=== PATIENT | male | born 1935 | race Caucasian/White ===

== ENCOUNTER 2020-09-15 17:27 | Inpatient (IN) | payer MEDICARE, BC, SELFPAY ==
[2020-09-15 17:33] VITALS: BP 139/59; PULSE 52; RESP 16; TEMP 36.7; O2SAT 95; BMI 20.9
--- NOTE | 2020-09-15 17:44 | ED.GENADULT ---
HPI - General Adult General Chief complaint: General Medical Stated complaint: general malaise Time Seen by Provider: 09/15/20 17:44 Source: family (Daughter/healthcare proxy at bedside) and EMS Mode of arrival: EMS Limitations: altered mental status (Advanced dementia/Alzheimer's) History of Present Illness HPI narrative: 85-year-old male with a past medical history of advanced dementia/Alzheimer's who was recently on hospice until his daughter's/healthcare proxy revoked it today due to patient became very sedated after he was given his 1st dose of 25 mg of Seroquel and they did not feel comfortable him at home this sedated and they were concerned that he was possibly having a stroke therefore they sent him here for further evaluation and treatment. Although on arrival daughter at bedside reports that she would rather make him comfort measures only because she would not want him to go through surgery or any other invasive intervention. She reports he is DNR. They are interested in the patient going to a long-term facility for comfort measures. Related Data Home Medications Medication Instructions Recorded Confirmed clopidogrel 75 mg tablet 75 mg PO DAILY 03/02/20 03/02/20 melatonin 10 mg tablet 10 mg PO BEDTIME PRN 03/02/20 03/02/20 metformin 500 mg tablet 500 mg PO BID 03/02/20 03/02/20 nitroglycerin 0.3 mg sublingual mg SUBLINGUAL 03/02/20 03/02/20 tablet Previous Rx's Medication Instructions Recorded acetaminophen 500 mg capsule 500 mg PO BID PRN 30 Days #60 cap 01/24/20 clonazepam 0.5 mg tablet 0.5 mg PO DAILY 30 Days #30 tab 01/24/20 metoprolol succinate 100 mg 100 mg PO DAILY #90 tab 03/13/20 tablet,extended release 24 hr aspirin 81 mg tablet,delayed 81 mg PO DAILY 30 Days #30 tab 03/29/20 release dexamethasone 2 mg tablet 2 mg PO DAILY 30 Days #30 tab 03/29/20 naproxen 500 mg tablet 500 mg PO BID PRN 30 Days #60 tab 03/29/20 rosuvastatin 20 mg tablet 20 mg PO DAILY #90 tab 04/24/20 amlodipine 10 mg tablet 10 mg PO DAILY #90 tab 07/07/20 isosorbide mononitrate 30 mg 30 mg PO DAILY #90 tab 07/24/20 tablet,extended release 24 hr losartan 25 mg tablet 25 mg PO DAILY #90 tab 08/14/20 donepezil 5 mg tablet 5 mg PO BEDTIME #90 tab 08/21/20 trazodone 50 mg tablet 50 mg PO BEDTIME 90 Days #90 tab 09/05/20 Allergies Allergy/AdvReac Type Severity Reaction Status Date / Time No Known Allergies Allergy Mild NONE Verified 03/02/20 11:55 Review of Systems Review of Systems: Yes Unobtainable due to mental status [facility] Past Medical History Medical History Ischemic cardiomyopathy Social History Social History Advance Directives: No Physical Exam Vital Signs: Vital Signs: Last Vital Signs Temp 98.1 F 09/15/20 17:33 Pulse 56 09/15/20 19:51 Resp 17 09/15/20 19:51 BP 139/59 L 09/15/20 17:33 Pulse Ox 95 09/15/20 17:33 Body Mass Index 20.9 vital signs have been reviewed as normal and appeared to be correct. Blood pressure hypotensive 139/59. Heart rate normal. Respiration rate normal. Temperature normal. Oxygen saturation normal. Appearance: Alert. Pleasantly confused. No acute distress. Head: Normal external exam. Normocephalic. Atraumatic. Eyes: PERRLA. EOMI. Conjunctiva and sclera normal. Eyelids normal. ENT: Pharynx normal. Uvula midline. Moist mucous membranes. No trismus noted. No drooling noted. No muffled voice noted. Neck: Normal inspection. Neck supple. FROM. No adenopathy. Thyroid Normal. No meningeal signs. No neck mass noted. CVS: Normal heart rate and rhythm. Heart sound normal. Pulses normal throughout. No murmurs/rales/gallops. Respiratory: No respiratory distress. Painless inspiration. Breath sounds normal. No wheezes/rales/rhonchi noted. Chest nontender. No accessory muscle usage noted or decreased air movement noted. Abdomen: Soft and nontender. Bowel sounds normal in all 4 quadrants. No distention noted. No organomegaly noted. No visible injury noted. Back: Full range of motion noted. No rashes/lesion/induration/fluctuance or signs of infection noted. Skin: Skin warm and dry. Normal skin color. Normal skin turgor. No rashes/lesions/lacerations noted. Extremities: No lower extremity edema. Extremities exhibit normal range of motion. Extremities nontender. Neuro: Alert pleasantly confused. No motor deficit. No sensory deficit. Reflexes normal. No focal neuro deficits noted. Vascular: + radial pulses/+ 2 distal pedal pulses/+2 dorsalis pedis b/l. Normal cap refill. No cyanosis noted to upper extremity nails and lower extremity toes nails. Course Course Course Narrative: 85-year-old male with a past medical history of advanced dementia/Alzheimer's who was recently on hospice until his daughter's/healthcare proxy revoked it today due to patient became very sedated after he was given his 1st dose of 25 mg of Seroquel and they did not feel comfortable him at home this sedated and they were concerned that he was possibly having a stroke therefore they sent him here for further evaluation and treatment. Although on arrival daughter at bedside reports that she would rather make him comfort measures only because she would not want him to go through surgery or any other invasive intervention. She reports he is DNR. They are interested in the patient going to a long-term facility for comfort measures. Therefore I consulted with case management and case management reported that the patient had his hospice revolve therefore he would have to wait 48 hours to be re-evaluated by hospice therefore patient will be admitted with comfort measures and IV will be placed and 1 mg of morphine and 0.5 mg of Ativan every 6 hours p.r.n. will be administered if indicated for comfort measures. Daughter at bedside understand and agree with this plan. I spoke to and she will be admitting the patient at this time. Medical Decision Making Medical Records Medical records reviewed: Yes I reviewed the patient's medical records. Discharge Plan Discharge Clinical Impression: Dementia, Comfort measures only status Patient Disposition: Admitted As Inpatient
--- NOTE | 2020-09-15 17:55 | PC.NURSE ---
pt took seroquel for the first time today at 12 noon. per juanita at [facility]- family called [facility] at 1430 d/t pt being lethargic and drooling- family did not want any measures taken at that time. pt now presents to ed d/t family revoking hospice for a medical eval to figure out what is going on. per [facility] daughter will not want to take him back home. juanita to fax over dni/dnr molst form and hcp jesse guevara cm aware of pt
[2020-09-15 19:51] VITALS: PULSE 56; RESP 17
--- NOTE | 2020-09-15 20:55 | PHA.MEDREC ---
Pharmacy Consult ? Medication Reconciliation Pharmacy has completed the medication reconciliation.
[2020-09-15 21:09] LABS: COVID-19 Test Negative (Negative)
--- NOTE | 2020-09-15 22:36 | MHC.CM.PN ---
Addendum entered by Josee Tapia 09/15/20 23:18: Purnima Sherman, HCP/daughter karri with room assignment. IMM reviewed and signed per protocol Addendum entered by Josee Tapia 09/15/20 23:07: HCP, MOLST, INVOKED HCP, and Medication list uploaded into [employer]. HCP, invoked HCP and Molst uploaded into [facility]. Original Note: CM received consult from Yana Hearn and Jessica HUDSON. Pt was being cared for by daughter with hospice ([facility]) at home. Pt given seraquel today and became very lethargic. Family got scared and wanted to bring pt to ED for evaluation. Family called hospice. Family then revoked hospice as of today and had pt transported to ED. 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 Pt arousable. Daughters would like to re-instate hospice, but do not feel they can take pt home at this time. CM spoke with automation qtp tester RN Lillian at [facility] hospice. She verified that there is a 48 hour waiting period before hospice can be re-instated. Lillian states she will check with her director- [facility] can see pt and family on Friday. Per Lillian, [facility] hospice is not an option if pt comfortable and not needing pain management for severe distress. Lillian tells CM that pt can have hospice in a facility. Pt remains a DNR/DNI. Spoke with family about conversation with Lillian from hospice. They understand and are in agreement for pt to be admitted for MANAGER TECHNICAL SERVICES and for hospice to re-evaluate pt on Friday. Daughters state that their father is a and in the past has [facility] and [facility]. Has not had care at [facility] for many years. Shaye Hang has been working with family regarding VA benefits . She is automation qtp tester tomorrow and available by cell at [phone], for any questions. HCP, MOLST, and invoked HCP by Sinan Cortes on chart. Medication list on chart. CM will need to call VA to see if he is vet connected and what services he is entitled to. Family states pt is vet connected and they believe his choice for SNF are [facility] or [facility]. Family would like [facility]. No referrals placed, pending verification of benefits with VA. Pt was able to share his social security number with CM SS# [id number]. IMM not completed. CM to follow fo d/c needs
[2020-09-16] VITALS (8 sets, daily range): BP systolic 121–177; BP diastolic 62–77; PULSE 50–64; RESP 18–20; TEMP 36.2–37.2; O2SAT 93–97; BMI 20.9
[2020-09-16 04:59] LABS: MANUAL DIFF FLAG NO
[2020-09-16 05:07] LABS: Basophils Absolute Auto 0.1 X10*3/uL (0.0-0.2); Basophils Percent Auto 0.6 % (0-2); Eosinophils Absolute Auto 0.2 X10*3/uL (0.0-0.4); Eosinophils Percent Auto 2.2 % (0-4); Hematocrit 34.8 % (42-52); Hemoglobin 11.6 g/dl (14.0-18.0); Imm Gran Abs Auto 0.02 X10*3/uL (0.00-0.03); Imm Gran Pct Auto 0.2 % (0.0-0.4); Lymphocytes Absolute Auto 1.6 X10*3/uL (1.2-4.9); Lymphocytes Percent Auto 19.5 % (20-40); Mean Corpuscular HGB Conc 33.3 g/dl (31.0-36.0); Mean Corpuscular Hemoglobin 30.1 pg (27.0-33.0); Mean Corpuscular Volume 90.4 fL (80-98); Mean Platelet Volume 11.1 fL (9.4-12.4); Monocytes Absolute Auto 0.6 X10*3/uL (0.1-1.2); Monocytes Percent Auto 6.9 % (2-11); Neutrophils Absolute Auto 5.9 X10*3/uL (2.0-8.3); Neutrophils Percent Auto 70.6 % (45-73); Platelet Count 183 X10*3/uL (160-400); Red Blood Count 3.85 X10*6/uL (4.60-5.80); Red Cell Distribution Width 12.5 % (11.0-16.0); White Blood Count 8.3 X10*3/uL (4.8-10.8)
[2020-09-16 05:32] LABS: Anion Gap 13 (12-20); Blood Urea Nitrogen 41 mg/dL (9-16); Calcium 8.6 mg/dL (8.4-10.2); Carbon Dioxide 27 mmol/L (22-29); Chloride 103 mmol/L (96-108); Creatinine Clr Calc Pharmacy 26.7; Estimated Glomerular Filt Rate 33; Glucose Random 149 mg/dL (60-115); Sodium 139 mmol/L (135-145)
--- NOTE | 2020-09-16 07:29 | PM.IMHP ---
History of Present Illness Date of Service: 09/15/20 Chief Complaint: Encephalopathy This is an 85-year-old male with past medical history of severe dementia currently on hospice who is brought in by his daughters due to worsening mental status. Patient was recently started on Seroquel, took his 1st dose today and became completely lethargic according to the daughters and started drooling and not responding. Hospice was contacted, given the daughter's concerns and the need to bring him to the hospital, hospice was revoked. The daughters who were his healthcare proxy would like patient to be comfort measures only. Unable to review any systems as patient is obtunded. On arrival to the ED patient hemodynamically stable with no significant abnormal vitals Family was concerned about a stroke but they do not want any further medical intervention and would like to take patient home on hospice again but because patient's hospice was revoked he will need to stay in the hospital and be re-evaluated for hospice Review of Systems Review of Systems: Yes Unobtainable due to mental condition and Unobtainable due to mental status [facility] Medical History (Updated 09/16/20 @ 07:31 by Elvira Kenyon MD) Dementia Ischemic cardiomyopathy Social History Household Members: Spouse and Children Housing: Apartment Do you presently have visiting nurse or other home services: No Unable to assess alcohol history related to: Unknown Patient Tobacco Use Status: Tobacco use Unknown Use of substances other than those prescribed or required for medical reasons: Unknown Have you been hit, kicked, punched, or otherwise hurt by someone within the past year? If so, by whom?: No Do you feel safe in your current relationship?: Yes Is there a partner from a previous relationship who is making you feel unsafe now?: No Are you made to feel afraid or neglected: No Advance Directives: No Advance Directives Information Provided: Yes (yy) Do you have thoughts of harming others: None Do you have a plan to hurt others: No Plan Recently lost weight without trying: Unsure Nutrition Risks: No Nutritional Risk Poor oral hygiene: No service: Yes Current occupational status: retired Meds Allergies Allergy/AdvReac Type Severity Reaction Status Date / Time No Known Allergies Allergy Mild NONE Verified 03/02/20 11:55 Active Medications: Current Medications Generic Name Dose Route Start Last Admin Trade Name Jorgeq PRN Reason Stop Dose Admin Acetaminophen 650 mg 09/16/20 00:23 Acetaminophen 325 Mg Tablet PO Q6H PRN Pain, Mild (Pain Scale 1-3) Acetaminophen 650 mg 09/16/20 00:23 Acetaminophen Supp 650 Mg Supp.Rect [place] Q6H PRN Pain, Mild (Pain Scale 1-3) Docusate Sodium 100 mg 09/16/20 00:23 Docusate Sodium 100 Mg Capsule PO DAILY PRN Constipation Lorazepam 0.5 mg 09/15/20 19:54 Lorazepam 2 Mg/Ml Vial IVPUSH Q6H PRN anxiety/agitation Metoprolol Succinate 100 mg 09/16/20 09:00 Metoprolol Succinate Er 100 Mg Tab.Er.24h PO DAILY [facility] Protocol Morphine Sulfate 1 mg 09/15/20 19:34 Morphine Sulfate 2 Mg/Ml Cartridge IVPUSH Q6H PRN pain to maker comfortable Ondansetron HCl 4 mg 09/16/20 00:23 Ondansetron Hcl 4 Mg/2 Ml Vial IVPUSH Q8H PRN Nausea and Vomiting Pharmacy Consult 1 each 09/15/20 20:15 Consult Rx Perform Med Rec MISCELLANE ONCE PRN Consult order Sodium Chloride 3 ml 09/16/20 00:23 09/16/20 00:39 0.9 % Sodium Chloride Flush 3 Ml Syringe IVFLUSH Not Given QSHIFT [facility] Home Medications Medication Instructions Recorded Confirmed Last Taken Type metformin 500 mg tablet 500 mg PO BID 03/02/20 09/15/20 Unknown History acetaminophen 1 tab PO BID PRN 09/15/20 09/15/20 Unknown History amlodipine 1 tab PO DAILY 09/15/20 09/15/20 Unknown History clonazepam 0.25 mg PO DAILY 09/15/20 09/15/20 Unknown History potassium chloride 1 tab PO DAILY 09/15/20 09/15/20 Unknown History Physical Exam Vital Signs and Narrative: Vital Signs: Last Vital Signs Temp 97.2 F 09/16/20 03:52 Pulse 58 09/16/20 03:52 Resp 09/16/20 03:52 BP 125/62 09/16/20 03:52 Pulse Ox 95 09/16/20 03:52 Body Mass Index 20.9 Const: Other: Obtunded Eyes: General: appearance normal, both eyes and all related structures Resp: Effort & Inspection: normal respiratory effort Cardio: Rate: regular rate Rhythm: regular rhythm GI: Palpation (GI): Soft to palpation Auscultation: normal bowel sounds Skin: General skin exam: no rashes or lesions noted Neuro: Cognition (Neuro): normal cognition Extrem: General: Yes normal to inspection and Yes no pedal edema Results Labs CBC and Chem 7: 09/16/20 04:31 09/16/20 04:31 Labs: Laboratory Results - last 24 hr 09/15/20 09/16/20 09/16/20 20:47 04:31 04:31 MCV 90.4 MCH 30.1 MCHC 33.3 RDW 12.5 Plt Count 183 MPV 11.1 Immature Gran % (Auto) 0.2 Neut % (Auto) 70.6 Lymph % (Auto) 19.5 L [place] % (Auto) 6.9 Eos % (Auto) 2.2 Baso % (Auto) 0.6 Lymph # (Auto) 1.6 [place] # (Auto) 0.6 Eos # (Auto) 0.2 Baso # (Auto) 0.1 Abs Immat Gran (auto) 0.02 Absolute Neuts (auto) 5.9 Absolute Nucleated RBC 0.000 Nucleated RBC % (auto) 0.0 Anion Gap 13 Estim Creat Clear Calc 26.7 Estimated GFR 33 Random Glucose 149 H Calcium 8.6 COVID-19 ([facility]) Negative COVID-19 Clin Com See Note Assessment and Plan (1) Comfort measures only status: Status: Acute 85-year-old male with past medical history of severe dementia who was on hospice brought in due to encephalopathy, patient's family would like him to be comfort measures only # encephalopathy - most likely as a result of Seroquel - patient's family do not want him to undergo head CT and 1 him to be comfort measures only At this time will consult case management as patient will need replacement hospice. Quality Stroke Does the patient have a stroke diagnosis?: No VTE Prior VTE?: No VTE Risk Level:: Medical - moderate - high VTE Device Contraindication: Treatment Not Indicated VTE Drug Contraindication: Treatment Not Indicated
[2020-09-16] MEDS: Metoprolol Succinate ER 100 MG TAB.ER.24H PO (10:26)
--- NOTE | 2020-09-16 13:17 | PM.EVENT ---
Documented by User: JC Boggs 09/16/20 13:20 Event Note Date of Service: 09/16/20 Event Note: 85-year-old male with past medical history of ischemic cardiomyopathy, ICD placement, hypertension, sleeping issues, impaired glucose metabolism, hyperlipidemia, advanced dementia who was on hospice brought in due to encephalopathy, patient's family would like him to be comfort measures only encephalopathy poa. resolve. pt awake and alert this morning - most likely as a result of Seroquel - patient's family do not want him to undergo head CT and 1 him to be comfort measures only CM to discuss plan to return to hospice. Code status: EQUIPMENT SERVICE ASSOCIATE Attending: Dr. Doe Documented by User: Tanner Doe MD 09/19/20 12:18 Event Note Date of Service: 09/19/20
--- NOTE | 2020-09-16 16:20 | MHC.CM.PN ---
CM CONTACTED PTS DAUGHTER, BERTRAND RAHMAN ([phone]) WHO REPORTS THEY HAD HAD THE PT AT HOME WITH HOSPICE HOWEVER IT WAS GETTING MORE DIFFICULT TO CARE FOR HIM AND THEY HAD TO BRING HIM IN FOR PLACEMENT. SHE REPORTS THE PT IS A HOWEVER HE HAS NO USED [facility] SERVICES FOR APPROX 10 YEARS. SHE IS INTERESTED IN THE PT GOING TO A VA FACILITY IF HE HAS THE BENEFITS. PTS BENEFITS CANNOT BE RUN BEFORE FRIDAY. DCP IS TBD PENDING VERIFICATION OF PTS VA BENEFITS. IF PT HAS NECESSARY BENEFITS, HE WILL GO TO A [facility] CONTRACTED SNF WITH [facility]
[2020-09-17 11:18] VITALS: BP 170/72; PULSE 57
[2020-09-17] MEDS: Metoprolol Succinate ER 100 MG TAB.ER.24H PO (11:18)
--- NOTE | 2020-09-17 11:34 | P.PNIM_ITS ---
Subjective Subjective Date of Service: 09/17/20 <JC Boggs - Last Filed: 09/17/20 11:59> 09/17/20 <Kike Love MD - Last Filed: 09/17/20 12:39> Interval History: seen and examined this morning says he had a peaceful night no complaints this morning <JC Boggs - Last Filed: 09/17/20 11:59> Review of Systems Review of Systems: Yes all other systems are reviewed and are negative <JC Boggs - Last Filed: 09/17/20 11:59> Constitutional Constitutional: Denies chills and Denies fever(s) <JC Boggs - Last Filed: 09/17/20 11:59> Cardiovascular Cardiovascular: Denies chest pain <JC Boggs - Last Filed: 09/17/20 11:59> Respiratory Respiratory: Denies cough <JC Boggs - Last Filed: 09/17/20 11:59> Gastrointestinal Gastrointestinal: Denies abdominal pain <JC Boggs - Last Filed: 09/17/20 11:59> Physical Exam Vital Signs: Vital Signs: Last Vital Signs Temp 98.7 F 09/16/20 23:40 Pulse 57 09/17/20 11:18 Resp 18 09/16/20 23:40 BP 170/72 H 09/17/20 11:18 Pulse Ox 93 09/16/20 23:40 Body Mass Index 20.9 <JC Boggs - Last Filed: 09/17/20 11:59> Const: General: comfortable, no acute distress, alert and awake <JC Boggs - Last Filed: 09/17/20 11:59> Nutritional Appearance: well nourished <JC Boggs - Last Filed: 09/17/20 11:59> Eyes: Pupils: Equal, round and reactive pupils present <JC Boggs Last Filed: 09/17/20 11:59> EOM: EOMs intact bilaterally <JC Boggs - Last Filed: 09/17/20 11:59> Resp: Effort & Inspection: normal respiratory effort, no respiratory distress and no use of accessory muscles <JC Boggs Last Filed: 09/17/20 11:59> Cardio: Rate: bradycardic <JC Boggs Last Filed: 09/17/20 11:59> Rhythm: regular rhythm <JC Boggs Last Filed: 09/17/20 11:59> Neuro: Cranial nerves: Yes Equal, round and reactive pupils present <JC Boggs Last Filed: 09/17/20 11:59> Extrem: Other: no leg edema <JC Boggs Last Filed: 09/17/20 11:59> Objective Data Current Medications Generic Name Dose Route Start Last Admin Trade Name Freq PRN Reason Stop Dose Admin Acetaminophen 650 mg 09/16/20 00:23 Acetaminophen 325 Mg Tablet PO Q6H PRN Pain, Mild (Pain Scale 1-3) Acetaminophen 650 mg 09/16/20 00:23 Acetaminophen Supp [address] Q6H PRN Pain, Mild (Pain Scale 1-3) Acetaminophen 650 mg 09/17/20 11:19 Acetaminophen 325 Mg Tablet PO Q6H PRN pain fever headache Clonazepam 0.25 mg 09/18/20 09:00 Clonazepam 0.5 Mg Tablet PO DAILY [facility] Docusate Sodium 100 mg 09/16/20 00:23 Docusate Sodium 100 Mg Capsule PO DAILY PRN Constipation Donepezil HCl 5 mg 09/17/20 21:00 Donepezil Hcl 5 Mg Tablet PO BEDTIME [facility] Isosorbide Mononitrate 30 mg 09/18/20 09:00 Isosorbide Mononitrate 30 Mg Tab.Er.24h PO DAILY [facility] Protocol Metoprolol Succinate 100 mg 09/16/20 09:00 09/17/20 11:18 Metoprolol Succinate Er 100 Mg Tab.Er.24h PO 100 mg DAILY [facility] Administration Protocol Ondansetron HCl 4 mg 09/16/20 00:23 Ondansetron Hcl 4 Mg/2 Ml Vial IVPUSH Q8H PRN Nausea and Vomiting Pharmacy Consult 1 each 09/15/20 20:15 Consult Rx Perform Med Rec MISCELLANE ONCE PRN Consult order Sodium Chloride 3 ml 09/16/20 00:23 09/17/20 09:53 0.9 % Sodium Chloride Flush 3 Ml Syringe IVFLUSH Not Given QSHIFT [facility] <JC Boggs - Last Filed: 09/17/20 11:59> Labs CBC & Chem 7: : 09/16/20 04:31 09/16/20 04:31 <JC Boggs - Last Filed: 09/17/20 11:59> Quality Stroke Does the patient have a stroke diagnosis?: No <JC Boggs - Last Filed: 09/17/20 11:59> VTE Prior VTE?: No <JC Boggs - Last Filed: 09/17/20 11:59> VTE Risk Level:: Medical - moderate - high <JC Boggs - Last Filed: 09/17/20 11:59> VTE Device Contraindication: Treatment Not Indicated <JC Boggs - Last Filed: 09/17/20 11:59> VTE Drug Contraindication: Treatment Not Indicated <JC Boggs - Last Filed: 09/17/20 11:59> Assessment and Plan (1) Dementia: Status: Acute <JC Boggs - Last Filed: 09/17/20 11:59> Assessment and Plan: This is an 85-year-old male with a history of advanced dementia, ischemic cardiomyopathy status post AICD, hypertension, dyslipidemia who on hosp ice at home with family. He received a dose of Seroquel and became lethargic, family brought him to the emergency room for evaluation and temporarily revoked hospice. He was admitted to the hospital under HUMANITIES COORDINATOR status. JESSCIA creatinine up to 1.9 hold arb -follow renal function -hold fluid for underlying CHF Dementia -resume donepezil Ischemic cardiomyopathy s/p AICD -resume imdur -continue metoprolol Dispo: placement for hospice. Plan to go to [place] contracted SNF with hosp[facility] care [facility] if able. Pt benefits can't be run until Friday DVT ppx - boots Attending: Dr. Love <JC Boggs - Last Filed: 09/17/20 11:59>
[2020-09-17] MEDS: Donepezil HCl 5 MG TABLET PO (19:43)
[2020-09-18 07:35] VITALS: BP 133/59; PULSE 54; RESP 20; TEMP 36.8; O2SAT 95
[2020-09-18 07:43] LABS: Anion Gap 12 (12-20); Blood Urea Nitrogen 28 mg/dL (9-16); Calcium 8.3 mg/dL (8.4-10.2); Carbon Dioxide 26 mmol/L (22-29); Chloride 105 mmol/L (96-108); Estimated Glomerular Filt Rate 56; Glucose Random 87 mg/dL (60-115); Potassium 3.8 mmol/L (3.3-5.1); Sodium 139 mmol/L (135-145)
[2020-09-18] MEDS: clonazePAM 0.5 MG TABLET 0.25 MG PO (08:21)
[2020-09-18 08:22] VITALS: BP 133/59; PULSE 54
[2020-09-18] MEDS: Isosorbide Mononitrate 30 MG TAB.ER.24H PO (08:22)
[2020-09-18 08:23] VITALS: PULSE 52
--- NOTE | 2020-09-18 13:46 | MHC.CM.PN ---
ROSALBA spoke with [place]/Purnima at [phone]. The goal for dc is [facility] [place] [facility] (DO NOT WANT [facility]). Lori from Hospice is speaking with Jeramy Ruiz from the [place] to see what will be necessary to make this happen. CM will follow.
--- NOTE | 2020-09-18 13:56 | HO.PM.IMPN ---
Subjective Subjective Date of Service: 09/18/20 Interval History: Patient is sitting comfortably, questioning why is he in the hospital, offers no acute complaints had an uneventful night. ROS General no headache, no dizziness, no fever, chills. CVS no chest pain, no palpitation. Respiratory no cough, no sob Gastrointestinal no nausea, no vomiting, no abdominal pain Physical Exam Vital Signs: Vital Signs: Last Vital Signs Temp 98.2 F 09/18/20 07:35 Pulse 52 09/18/20 08:23 Resp 20 09/18/20 07:35 BP 133/59 L 09/18/20 08:22 Pulse Ox 95 09/18/20 07:35 Body Mass Index 20.9 General sitting comfortably in no acute distress. Neck supple, no JVD. CVS regular rate rhythm, Respiratory lungs clear to auscultation, no respiratory distress, no wheeze, no rhonchi. Gastrointestinal abdomen soft, nontender, bowel sounds audible Extremities no edema. Neuro nonfocal , speech clear. Skin no rash Objective Data Current Medications Generic Name Dose Route Start Last Admin Trade Name Freq PRN Reason Stop Dose Admin Acetaminophen 650 mg 09/16/20 00:23 Acetaminophen 325 Mg Tablet PO Q6H PRN Pain, Mild (Pain Scale 1-3) Acetaminophen 650 mg 09/16/20 00:23 Acetaminophen Supp 650 Mg Supp.Rect [place] Q6H PRN Pain, Mild (Pain Scale 1-3) Acetaminophen 650 mg 09/17/20 11:19 Acetaminophen 325 Mg Tablet PO Q6H PRN pain fever headache Clonazepam 0.25 mg 09/18/20 09:00 09/18/20 08:21 Clonazepam 0.5 Mg Tablet PO 0.25 mg DAILY BARBARA Administration Docusate Sodium 100 mg 09/16/20 00:23 Docusate Sodium 100 Mg Capsule PO DAILY PRN Constipation Donepezil HCl 5 mg 09/17/20 21:00 09/17/20 19:43 Donepezil Hcl 5 Mg Tablet PO 5 mg BEDTIME BARBARA Administration Isosorbide Mononitrate 30 mg 09/18/20 09:00 09/18/20 08:22 Isosorbide Mononitrate 30 Mg Tab.Er.24h PO 30 mg DAILY BARBARA Administration Protocol Metoprolol Succinate 100 mg 09/16/20 09:00 09/18/20 08:23 Metoprolol Succinate Er 100 Mg Tab.Er.24h PO Not Given DAILY [facility] Protocol Ondansetron HCl 4 mg 09/16/20 00:23 Ondansetron Hcl 4 Mg/2 Ml Vial IVPUSH Q8H PRN Nausea and Vomiting Pharmacy Consult 1 each 09/15/20 20:15 Consult Rx Perform Med Rec MISCELLANE ONCE PRN Consult order Sodium Chloride 3 ml 09/16/20 00:23 09/18/20 07:18 0.9 % Sodium Chloride Flush 3 Ml Syringe IVFLUSH Not Given QSHIFT [facility] Labs CBC & Chem 7: 09/16/20 04:31 09/18/20 06:13 Labs: Laboratory Results - last 24 hr 09/18/20 06:13 Sodium 139 Potassium 3.8 Chloride 105 Carbon Dioxide 26 Anion Gap 12 BUN 28 H Creatinine 1.22 Estim Creat Clear Calc 42.0 Estimated GFR 56 Random Glucose 87 D Calcium 8.3 L Quality Stroke Does the patient have a stroke diagnosis?: No VTE Prior VTE?: No VTE Risk Level:: Medical - moderate - high VTE Device Contraindication: Treatment Not Indicated VTE Drug Contraindication: Treatment Not Indicated Assessment and Plan (1) Acute kidney injury: Status: Acute (2) Acute encephalopathy: Status: Acute (3) Ischemic cardiomyopathy: Status: Acute (4) Dementia: Status: Acute Assessment and Plan: 85-year-old male with a history of advanced dementia, ischemic cardiomyopathy status post AICD, hypertension, dyslipidemia who on hospice at home with family. He received a dose of Seroquel and became lethargic, family brought him to the emergency room for evaluation and temporarily revoked hospice. 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 Acute toxic metabolic encephalopathy likely due to Seroquel and JESSICA now resolved, patient seems to be at baseline awake alert answering questions appropriately, imaging studies not obtained as per family wishes. JESSICA creatinine up to 1.9, likely pre renal, will continue to hold Arb since blood pressure is stable on beta-blockers and Imdur, if BP noted to be trending up will resume ARBs Dementia Continue donepezil Ischemic cardiomyopathy s/p AICD imdur and metoprolol Dispo: placement for hospice. Plan to go to [place] contracted SNF with hospice life care services if able. surgical services coordinator arranging for discharge plan. DVT ppx - boots
[2020-09-18] MEDS: Donepezil HCl 5 MG TABLET PO (20:00)
[2020-09-18 20:08] VITALS: BP 166/79; PULSE 52; RESP 20; TEMP 36.7; O2SAT 96
[2020-09-19 07:14] VITALS: BP 179/78; PULSE 53; RESP 20; TEMP 36.7; O2SAT 95
[2020-09-19 09:37] VITALS: BP 179/98; PULSE 62
[2020-09-19] MEDS: Isosorbide Mononitrate 30 MG TAB.ER.24H PO (09:37)
[2020-09-19] MEDS: clonazePAM 0.5 MG TABLET 0.25 MG PO (09:38)
[2020-09-19 09:39] VITALS: BP 179/78; PULSE 62
[2020-09-19] MEDS: Metoprolol Succinate ER 100 MG TAB.ER.24H PO (09:39)
--- NOTE | 2020-09-19 12:20 | HO.PM.IMPN ---
Subjective Subjective Date of Service: 09/19/20 Interval History: Patient is sitting comfortably, comfortable, no sure why she's in the hospital ROS General no headache, no dizziness, no fever, chills. CVS no chest pain, no palpitation. Respiratory no cough, no sob Gastrointestinal no nausea, no vomiting, no abdominal pain Physical Exam Vital Signs: Vital Signs: Last Vital Signs Temp 98.0 F 09/19/20 07:14 Pulse 62 09/19/20 09:39 Resp 20 09/19/20 07:14 BP 179/78 H 09/19/20 09:39 Pulse Ox 95 09/19/20 07:14 Body Mass Index 20.9 Const: Other: General: AO X 1, no acute distress Resp: CTA bilateral CVS: S1,S2,RRR GI: +BS, NT, no distention Skin: No rash Neuro: motor grossly intact Psych: appropriate affect Objective Data Current Medications Generic Name Dose Route Start Last Admin Trade Name Freq PRN Reason Stop Dose Admin Acetaminophen 650 mg 09/16/20 00:23 Acetaminophen 325 Mg Tablet PO Q6H PRN Pain, Mild (Pain Scale 1-3) Acetaminophen 650 mg 09/16/20 00:23 Acetaminophen Supp 650 Mg Supp.Rect [place] Q6H PRN Pain, Mild (Pain Scale 1-3) Acetaminophen 650 mg 09/17/20 11:19 Acetaminophen 325 Mg Tablet PO Q6H PRN pain fever headache Clonazepam 0.25 mg 09/18/20 09:00 09/19/20 09:38 Clonazepam 0.5 Mg Tablet PO 0.25 mg DAILY BARBARA Administration Docusate Sodium 100 mg 09/16/20 00:23 Docusate Sodium 100 Mg Capsule PO DAILY PRN Constipation Donepezil HCl 5 mg 09/17/20 21:00 09/18/20 20:00 Donepezil Hcl 5 Mg Tablet PO 5 mg BEDTIME BARBARA Administration Isosorbide Mononitrate 30 mg 09/18/20 09:00 09/19/20 09:37 Isosorbide Mononitrate 30 Mg Tab.Er.24h PO 30 mg DAILY BARBARA Administration Protocol Metoprolol Succinate 100 mg 09/16/20 09:00 09/19/20 09:39 Metoprolol Succinate Er 100 Mg Tab.Er.24h PO 100 mg DAILY BARBARA Administration Protocol Ondansetron HCl 4 mg 09/16/20 00:23 Ondansetron Hcl 4 Mg/2 Ml Vial IVPUSH Q8H PRN Nausea and Vomiting Pharmacy Consult 1 each 09/15/20 20:15 Consult Rx Perform Med Rec MISCELLANE ONCE PRN Consult order Sodium Chloride 3 ml 09/16/20 00:23 09/19/20 09:24 0.9 % Sodium Chloride Flush 3 Ml Syringe IVFLUSH Not Given QSHIFT [facility] Labs CBC & Chem 7: 09/16/20 04:31 09/18/20 06:13 Quality Stroke Does the patient have a stroke diagnosis?: No VTE Prior VTE?: No VTE Risk Level:: Medical - moderate - high VTE Device Contraindication: Treatment Not Indicated VTE Drug Contraindication: Treatment Not Indicated Assessment and Plan (1) Acute kidney injury: Status: Acute (2) Acute encephalopathy: Status: Acute (3) Ischemic cardiomyopathy: Status: Acute (4) Dementia: Status: Acute Assessment and Plan: 85-year-old male with a history of advanced dementia, ischemic cardiomyopathy status post AICD, hypertension, dyslipidemia who on hospice at home with family. He received a dose of Seroquel and became lethargic, family brought him to the emergency room for evaluation and temporarily revoked hospice. 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 Acute toxic metabolic encephalopathy likely due to Seroquel and JESSICA now resolved, patient seems to be at baseline awake alert answering questions appropriately, imaging studies not obtained as per family wishes. JESSICA creatinine up to 1.9, likely pre renal, will continue to hold Arb since blood pressure is stable on beta-blockers and Imdur, if BP noted to be trending up will resume ARBs. Recheck tomorrow Dementia Continue donepezil Ischemic cardiomyopathy s/p AICD imdur and metoprolol Dispo: placement for hospice. Plan to go to [place] contracted SNF with hospice life care services if able. volunteer services supervisor arranging for discharge plan. DVT ppx - boots
--- NOTE | 2020-09-19 13:28 | MHC.CM.PN ---
Per [facility]'s request, CM left a detailed message for [facility] Navigating Officer/Jeramy Brenner at [phone], Ext. [phone], explaining to him that Patient/family's first SNF choice is [facility], not [facility]. CM will continue to work toward [facility] approval for dc to [facility] and follow for dc planning.
[2020-09-19] MEDS: Donepezil HCl 5 MG TABLET PO (21:03)
[2020-09-19 23:05] VITALS: BP 155/68; PULSE 66; RESP 20; TEMP 36.2; O2SAT 94
[2020-09-20 07:10] VITALS: BP 153/67; PULSE 50; RESP 18; TEMP 36.6; O2SAT 97
[2020-09-20 09:34] VITALS: BP 157/63; PULSE 61
[2020-09-20] MEDS: Metoprolol Succinate ER 100 MG TAB.ER.24H PO (09:34)
[2020-09-20] MEDS: Isosorbide Mononitrate 30 MG TAB.ER.24H PO (09:35)
[2020-09-20] MEDS: clonazePAM 0.5 MG TABLET 0.25 MG PO (09:35)
--- NOTE | 2020-09-20 10:53 | MHC.CM.PN ---
Patient has been medically cleared for dc to SNF with [facility] once he arrives there today at 1 PM, via [facility]. Second IMM addressed with Daughter/HCP/Purnima at [phone], who is aware of and now in agreement with the dc plan (with the goal to transfer to [facility] if/when a bed becomes available). Per Purnima's request, original IMM being left at bedside and a copy placed on the chart.Hospice has been informed of the dc plan.
[2020-09-20 11:37] LABS: COVID-19 Test Negative (Negative); IDNOW Serial# 9DD0AD1C
--- NOTE | 2020-09-20 12:20 | PM.DS ---
DS: Providers Provider Date of Service: 09/20/20 Date of admission: 09/15/20 21:21 Primary care physician: Tremayne Cortes PA-C DS: Diagnosis Discharge Diagnosis (1) Acute kidney injury: Status: Acute (2) Acute encephalopathy: Status: Acute (3) Ischemic cardiomyopathy: Status: Acute (4) Dementia: Status: Acute DS: Medications Discharge Medications Home Medications: Home Medications Medication Instructions Recorded Confirmed metformin 500 mg tablet 500 mg PO BID 03/02/20 09/15/20 acetaminophen 1 tab PO BID PRN 09/15/20 09/15/20 amlodipine 1 tab PO DAILY 09/15/20 09/15/20 clonazepam 0.25 mg PO DAILY 09/15/20 09/15/20 potassium chloride 1 tab PO DAILY 09/15/20 09/15/20 Previous Rx's Medication Instructions Recorded metoprolol succinate 100 mg 100 mg PO DAILY #90 tab 03/13/20 tablet,extended release 24 hr aspirin 81 mg tablet,delayed 81 mg PO DAILY 30 Days #30 tab 03/29/20 release rosuvastatin 20 mg tablet 20 mg PO DAILY #90 tab 04/24/20 isosorbide mononitrate 30 mg 30 mg PO DAILY #90 tab 07/24/20 tablet,extended release 24 hr losartan 25 mg tablet 25 mg PO DAILY #90 tab 08/14/20 donepezil 5 mg tablet 5 mg PO BEDTIME #90 tab 08/21/20 DS: Summary Hospital Course Hospital Course: Chief Complaint: Encephalopathy This is an 85-year-old male with past medical history of severe dementia currently on hospice who is brought in by his daughters due to worsening mental status. Patient was recently started on Seroquel, took his 1st dose today and became completely lethargic according to the daughters and started drooling and not responding. Hospice was contacted, given the daughter's concerns and the need to bring him to the hospital, hospice was revoked. The daughters who were his healthcare proxy would like patient to be comfort measures only. Unable to review any systems as patient is obtunded. On arrival to the ED patient hemodynamically stable with no significant abnormal vitals Family was concerned about a stroke but they do not want any further medical intervention and would like to take patient home on hospice again but because patient's hospice was revoked he will need to stay in the hospital and be re-evaluated for hospice Hospital course: 5-year-old male with a history of advanced dementia, ischemic cardiomyopathy status post AICD, hypertension, dyslipidemia who on hospice at home with family. He received a dose of Seroquel and became lethargic, family brought him to the emergency room for evaluation and temporarily revoked hospice. He was admitted to the hospital under MEDICAL OFFICE SPECIALIST status. Acute toxic metabolic encephalopathy likely due to Seroquel and JESSICA now resolved, patient seems to be at baseline awake alert answering questions appropriately, imaging studies not obtained as per family wishes. JESSICA creatinine up to 1.9, likely pre renal, will continue to hold Arb since blood pressure is stable on beta-blockers and Imdur, if BP noted to be trending up will resume ARBs. Recheck tomorrow Dementia Continue donepezil Ischemic cardiomyopathy s/p AICD imdur and metoprolol Due to advanced dementia, healthcare proxy is invoked Final diagnosis: Acute encephalopathy JESSICA ischemic cardiomyopathy Diabetes HTN HLD Time Spent with Patient Time attestation: Total time spent providing and/or coordinating discharge services: Discharge coordination time: Greater than 30 minutes Quality: Stroke Does the patient have a stroke diagnosis?: No Physical Exam Vital Signs: Vital Signs: Last Vital Signs Temp 97.9 F 09/20/20 07:10 Pulse 61 09/20/20 09:34 Resp 18 09/20/20 07:10 BP 157/63 H 09/20/20 09:34 Pulse Ox 97 09/20/20 07:10 Body Mass Index 20.9 DS: Data Data Completed and Pending Labs on day of discharge: Laboratory Results - last 24 hr 09/20/20 11:06 COVID-19 ([facility]) Negative COVID-19 Clin Com See Note Discharge Plan Discharge Anticipated Discharge Date/Time: 09/20/20 12:09 Patient Disposition: Xfer SNF Discharge Diagnosis: Encephalopathy, renal failure Referrals: [facility] Posey [Outside] - 1 Week Tremayne Cortes PA-C [Primary Care Provider] - 1 Week Discharge Medications: Continued metoprolol succinate 100 mg tablet extended release 24 hr 100 mg PO DAILY Qty: 90 RF: 3 aspirin [Adult Aspirin Regimen] 81 mg tablet,delayed release (DR/EC) 81 mg PO DAILY 30 Days Qty: 30 RF: 3 isosorbide mononitrate 30 mg tablet extended release 24 hr 30 mg PO DAILY Qty: 90 RF: 2 donepezil 5 mg tablet 5 mg PO BEDTIME Qty: 90 RF: 2 amlodipine 10 mg tablet 1 tab PO DAILY RF: 0 clonazepam 0.5 mg Tablet 0.25 mg PO DAILY RF: 0 acetaminophen 500 mg tablet 1 tab PO BID PRN (Reason: fever) RF: 0 metformin 500 mg tablet 500 mg PO BID RF: 0 Discontinued rosuvastatin 20 mg tablet 20 mg PO DAILY Qty: 90 RF: 1 losartan 25 mg tablet 25 mg PO DAILY Qty: 90 RF: 2 potassium chloride 10 mEq tablet extended release 1 tab PO DAILY RF: 0 Discharge Orders: Discharge Order (Routine); Ordered 09/20/20 Ordered By: Tanner Doe Diet: advance to usual diet and diabetic diet Activity on Discharge: As tolerated Stand Alone Forms: Patient Portal Discharge page Care Plan Goals: Hospice care Health Concerns: Advanced dementi Plan of Treatment: Hospice care Assessment: As above
== END 2020-09-20 13:15 | disposition skilled nursing facility (03) | DRG 951 ==
LOC: HO.ED 19:37 → HO.EDOVER 21:50 → HO.IMC 22:33
PROVIDERS: Physician Assistant Medical; Admitting Provider Internal Medicine; Emergency Provider Internal Medicine; PCP Physician Assistant; Visit Provider Internal Medicine
DX: Z51.5 Encounter for palliative care (principal); G92 Toxic encephalopathy; N17.9 Acute kidney failure, unspecified; F03.90 Unspecified dementia, unspecified severity, without behavioral disturbance, psychotic disturbance, mood disturbance, and anxiety; T43.595A Adverse effect of other antipsychotics and neuroleptics, initial encounter; Y92.9 Unspecified place or not applicable; I25.5 Ischemic cardiomyopathy; Z95.810 Presence of automatic (implantable) cardiac defibrillator; I10 Essential (primary) hypertension; Z20.822 Contact with and (suspected) exposure to COVID-19; Z79.82 Long term (current) use of aspirin; Z79.84 Long term (current) use of oral hypoglycemic drugs; Z79.899 Other long term (current) drug therapy
CPT/HCPCS: 36415; 80048; 85025; 87635; 99283